=== PATIENT | male | born 1985 | race African-American/Black ===

== ENCOUNTER 2016-08-20 13:09 | Emergency (ER) | payer SELFPAY ==
[~2016-08-20] VITALS: Ht 180.3 cm; Wt 79.8 kg
[2016-08-20 13:12] VITALS: BP 132/77
== END 2016-08-20 14:06 | disposition home or self-care (01) ==
LOC: ER 13:11
DX: S60.011A Contusion of right thumb without damage to nail, initial encounter (principal); L03.011 Cellulitis of right finger; X58.XXXA Exposure to other specified factors, initial encounter; Y93.89 Activity, other specified; Y92.89 Other specified places as the place of occurrence of the external cause; Y99.0 Civilian activity done for income or pay
CPT/HCPCS: 10060; 99283; A4606; Z7610

== ENCOUNTER 2016-10-22 07:14 | Emergency (ER) | payer SELFPAY ==
[~2016-10-22] VITALS: Ht 180.3 cm; Wt 78.5 kg
[2016-10-22 07:19] VITALS: BP 115/65
== END 2016-10-22 07:41 | disposition home or self-care (01) ==
LOC: ER 07:16
DX: B35.6 Tinea cruris (principal)
CPT/HCPCS: 99282; A4606; Z7610

== ENCOUNTER 2017-01-07 13:16 | Emergency (ER) | payer SELFPAY ==
--- NOTE | 2017-01-07 13:20 | NUR ---
PT CALLED TO TRIAGE, PT NOT IN WAITING ROOM
--- NOTE | 2017-01-07 13:37 | NUR ---
PT CALLED TO TRIAGE, PT NOT IN WAITING ROOM
--- NOTE | 2017-01-07 14:56 | NUR ---
Patient eloped from facility. ER MD notified.
== END 2017-01-07 14:56 | disposition left against medical advice (07) ==
LOC: ER 13:18
DX: Z53.21 Procedure and treatment not carried out due to patient leaving prior to being seen by health care provider (principal)
CPT/HCPCS: A4606; Z7610

== ENCOUNTER 2017-01-24 19:53 | Emergency (ER) | payer SELFPAY ==
[~2017-01-24] VITALS: Ht 180.3 cm; Wt 79.4 kg
[2017-01-24 20:17] VITALS: BP 125/61
--- NOTE | 2017-01-24 22:27 | NUR ---
[facility] AT THE BEDSIDE.
--- NOTE | 2017-01-24 22:27 | NUR ---
PT AMBULATED INTO BED #3 WITH A STEADY GAIT. PT IS C/O HEADACHE, LIP BLISTER AND FEELING TIRED.
[2017-01-25] MEDS ORDERED: KETOROLAC TROMETHAMINE INJ 30 MG/ML VIAL ONE (14:17)
== END 2017-01-24 22:54 | disposition home or self-care (01) ==
LOC: ER 19:56
DX: B00.1 Herpesviral vesicular dermatitis (principal); Z86.711 Personal history of pulmonary embolism
CPT/HCPCS: A4606; J1885; Z7610

== ENCOUNTER 2017-04-13 13:44 | Emergency (ER) | payer SELFPAY ==
[~2017-04-13] VITALS: Ht 180.3 cm; Wt 81.2 kg
[2017-04-13 13:50] VITALS: BP 133/86
== END 2017-04-13 14:25 | disposition home or self-care (01) ==
LOC: ER 13:46
DX: B86 Scabies (principal)
CPT/HCPCS: 99282; A4606; Z7610

== ENCOUNTER 2017-05-03 15:12 | Emergency (ER) | payer SELFPAY ==
[~2017-05-03] VITALS: Ht 180.3 cm; Wt 81.6 kg
[2017-05-03 15:20] VITALS: BP 131/76
== END 2017-05-03 16:05 | disposition home or self-care (01) ==
LOC: ER 15:14
DX: J11.1 Influenza due to unidentified influenza virus with other respiratory manifestations (principal); Z86.711 Personal history of pulmonary embolism; F17.200 Nicotine dependence, unspecified, uncomplicated; Z60.2 Problems related to living alone
CPT/HCPCS: A4606; Z7610

== ENCOUNTER 2017-06-11 10:09 | Emergency (ER) | payer SELFPAY ==
[~2017-06-11] VITALS: Ht 175.3 cm; Wt 79.4 kg
[2017-06-11 10:09] VITALS: BP 141/65
[2017-06-11 10:42] LABS: INR 1.03 (0.85-1.15)
== END 2017-06-11 11:10 | disposition home or self-care (01) ==
LOC: ER 10:10
DX: R04.2 Hemoptysis (principal)
CPT/HCPCS: 36415; 71045-TC; 85610-TC; A4606; Z7610

== ENCOUNTER 2017-08-19 11:53 | Emergency (ER) | payer SELFPAY ==
[~2017-08-19] VITALS: Ht 180.3 cm; Wt 79.4 kg
[2017-08-19 12:06] VITALS: BP 125/74
== END 2017-08-19 12:38 | disposition home or self-care (01) ==
LOC: ER 11:54
DX: K64.9 Unspecified hemorrhoids (principal); Z86.711 Personal history of pulmonary embolism; Z60.2 Problems related to living alone
CPT/HCPCS: A4606; Z7502; Z7610

== ENCOUNTER 2018-09-08 21:00 | Emergency (ER) | payer SELFPAY ==
[~2018-09-08] VITALS: Ht 180.3 cm; Wt 80.7 kg
[2018-09-08 21:12] VITALS: BP 117/71
== END 2018-09-08 21:34 | disposition home or self-care (01) ==
LOC: ER 21:02
DX: S31.801A Laceration without foreign body of unspecified buttock, initial encounter (principal); Z86.711 Personal history of pulmonary embolism; Z60.2 Problems related to living alone; W26.8XXA Contact with other sharp object(s), not elsewhere classified, initial encounter; Y93.89 Activity, other specified; Y92.89 Other specified places as the place of occurrence of the external cause; Y99.8 Other external cause status
CPT/HCPCS: Z7502

== ENCOUNTER 2018-10-18 08:56 | Emergency (ER) | payer SELFPAY ==
[~2018-10-18] VITALS: Ht 170.2 cm; Wt 78.9 kg
--- NOTE | 2018-10-18 09:00 | NUR ---
DYSURIA AND DRAINAGE NOTED YESTERDAY. AA/OX4, NO DISTRESS NOTED, NO OTHER COMPLAINTS. UA SAMPLE OBTAINED AND SENT TO LAB.
[2018-10-18] MEDS ORDERED: CEFTRIAXONE 500 MG VIAL ONE (09:24)
[2018-10-18] MEDS ORDERED: AZITHROMYCIN 250 MG TABLET ONE (09:24)
[2018-10-18] MEDS ORDERED: LIDOCAINE /MPF 1% VIAL 5 ML VIAL ONE (09:24)
[2018-10-18] MEDS ORDERED: AZITHROMYCIN 250 MG TABLET PO ONE (09:30)
[2018-10-18] MEDS ORDERED: CEFTRIAXONE 1 G VIAL IM ONE (09:30)
[2018-10-18 09:53] LABS: APPEARANCE,URINE Clear (CLEAR); BILIRUBIN,URINE SMALL (NEGATIVE); BLOOD, URINE Moderate Ery/uL (NEGATIVE); COLOR,URINE Yellow (YELLOW); KETONES,URINE Negative (NEGATIVE); LEUKOCYTE ESTERASE ,URINE Moderate (NEGATIVE); NITRITE, URINE Negative (NEGATIVE); PH,URINE 5.5 (5.0-8.0); PROTEIN,URINE Negative (NEGATIVE); UGLUCOSE Negative (NEGATIVE); UROBILINOGEN,URINE 0.2 EU/dL (0.2)
[2018-10-18 09:55] LABS: BACTERIA,URINE Few /HPF (None Seen); SQUAMOUS EPITHELIAL CELL,UR Few /HPF (None Seen)
--- NOTE | 2018-10-18 10:20 | NUR ---
Patient discharged to home in stable condition. Written and verbal after care instructions given. Patient verbalizes understanding of instruction.
[2018-10-18 10:34] VITALS: BP 127/74
== END 2018-10-18 10:35 | disposition home or self-care (01) ==
LOC: ER 08:56
DX: N34.2 Other urethritis (principal); Z86.711 Personal history of pulmonary embolism; Z60.2 Problems related to living alone
CPT/HCPCS: 81001; 87086; 87491; 87591; 96372; 99283; J0696; J3490; 81000-TC

== ENCOUNTER 2023-02-12 11:34 | Emergency (ER) | payer SELFPAY ==
[~2023-02-12] VITALS: Ht 180.3 cm; Wt 82.6 kg
[2023-02-12 11:47] VITALS: TEMP 98.7
[2023-02-12] MEDS ORDERED: SULF1TAB48 PO (13:33)
[2023-02-12] MEDS ORDERED: CEPH500C2 PO (13:33)
[2023-02-12 13:45] VITALS: BP 121/60; O2SAT 98
== END 2023-02-12 13:46 | disposition home or self-care (01) ==
LOC: ER 11:34
DX: L03.115 Cellulitis of right lower limb (principal); J40 Bronchitis, not specified as acute or chronic; Z79.899 Other long term (current) drug therapy
CPT/HCPCS: 73630-TC

== ENCOUNTER 2023-02-16 09:51 | Emergency (ER) | payer SELFPAY ==
[~2023-02-16] VITALS: Ht 180.3 cm; Wt 83.9 kg
[~2023-02-16 09:51] MED LIST: CEPH500C2 PO; SULF1TAB48 PO
[2023-02-16 10:11] VITALS: BP 156/70; TEMP 98
[2023-02-16] MEDS ORDERED: IBUP-1957 PO (10:31)
[2023-02-16 10:40] VITALS: O2SAT 98
== END 2023-02-16 10:41 | disposition home or self-care (01) ==
LOC: ER 09:55
DX: M79.89 Other specified soft tissue disorders (principal); J40 Bronchitis, not specified as acute or chronic; Z79.899 Other long term (current) drug therapy; Z60.2 Problems related to living alone